=== PATIENT | male | born 1985 | race Caucasian/White ===

== ENCOUNTER → 2023-10-11 09:55 | Outpatient (REF) | payer BC, SELFPAY | LOC: RAD 09:55 | PROVIDERS: ATTENDING PHYSICIAN Internal Medicine Cardiovascular Disease; FAMILY PHYSICIAN Family Medicine | DX: R07.9 Chest pain, unspecified (principal); I10 Essential (primary) hypertension; Z68.33 Body mass index [BMI] 33.0-33.9, adult; R06.02 Shortness of breath | CPT/HCPCS: 75574; Q9967 ==

== ENCOUNTER → 2024-08-13 09:10 | Outpatient (REF) | payer BC, SELFPAY | LOC: MRI 3T 09:10 | PROVIDERS: ATTENDING PHYSICIAN Internal Medicine Gastroenterology; PRIMARYCARE PHYSICIAN Family Medicine | DX: K50.013 Crohn's disease of small intestine with fistula (principal) | CPT/HCPCS: 72197; 74183; A9575 ==